=== PATIENT | female | born 1980 | race Caucasian/White ===

== ENCOUNTER 2016-06-16 16:53 | Emergency (ER) | payer OTHER ==
--- NOTE | ~2016-06-16 | CR2 ---
[facility] A Service of [facility] RADIOLOGY TEXT RESULTS PATIENT: ARAMIS WALL LOCATION: SED : 78 UNIT #: [id number] AGE: [address]: LIMA MASTERSON PA-C SEX: F ORDER DR: [id number] [address] [address] [id number] E MR#: [id number] Acc #: [id number] NAME: ARAMIS WALL : 1980 SEX: F STUDY DATE/TIME: 06/16/2016 17:18 UNIT: SED ROOM: STUDY DESCRIPTION: CR Abdomen Acute Series Attending Physician: Lima Masterson Pa-C Ordering Physician: Physician Non-Staff Primary Care Physician: Primary Care Physician No MEDICAL IMAGING REPORT This report is preliminary unless electronic signature is present. EXAM Acute abdominal series, 06/16/2016 HISTORY Abdomen pain. Burning with urination. Bilateral flank pain began 4 days ago. FINDINGS AP radiograph of the chest is presented with supine and upright radiographs of the abdomen and pelvis. Chest radiograph is suboptimal. Lung apices not entirely included on field of view. There is mild thoracolumbar scoliosis slightly convex to the right in [id number] thoracic spine and to the left at the thoracolumbar junction. No acute-appearing bony abnormality. The heart and mediastinum are normal in size and contour. The lungs are well inflated. Visualized pulmonary parenchyma is clear. No pleural effusion or indication of pneumothorax. No suspicious nodule. The bowel gas pattern shows moderate stool burden in the colon particularly in the ascending colon but there is no pathologic colonic or small bowel dilatation. No indication of obstruction. No free air. Where visualized, abdominal solid organs are unremarkable. Dictated by... Andi Floyd M.D. THIS IS AN ELECTRONICALLY VERIFIED REPORT Andi Floyd M.D. at 06/17/2016 2:18 PM Jeni TD: 06/17/2016 09:53 JOB #: [id number] [facility] A Service of [facility] RADIOLOGY TEXT RESULTS PATIENT: ARAMIS WALL LOCATION: [facility] [place] : [birth year] UNIT #: [id number] AGE: [address]: LIMA MASTERSON PA-C SEX: F ORDER DR: MEDICAL IMAGING REPORT Page 1 of 1
[~2016-06-16 16:53] MED LIST: FLEXERIL10 MG PO; MOTRIN PO; NAPROSYN125 MG/5 M PO; NO MEDICATIONS
[2016-06-16 17:02] LABS: URINE SOURCE CLEAN CATCH
[2016-06-16 17:04] LABS: URINE APPEARANCE CLEAR; URINE BILIRUBIN NEG (NEG); URINE BLOOD NEG (NEG); URINE COLOR YELLOW; URINE GLUCOSE NEG (NORM); URINE KETONE NEG (NEG); URINE LEUKOCYTE ESTERASE NEG (NEG); URINE NITRATE NEG (NEG); URINE PROTEIN NEG (NEG); URINE SPECIFIC GRAVITY 1.015 (1.003-1.035); URINE UROBILINOGEN 0.2 MG/DL (NORM)
[2016-06-16 17:08] LABS: MICRO INDICATED? NO
[2016-06-16 18:19] LABS: BASOPHIL# 0.1 X10e3 (0-0.3); BASOPHIL% 0.5 % (0-2.5); EOSINOPHIL# 0.3 X10e3 (0-0.7); HEMATOCRIT 38.5 % (35.0-45.0); HEMOGLOBIN 12.5 gm/dL (12.0-16.0); LYMPHOCYTE# 1.8 X10e3 (1.0-3.5); LYMPHOCYTE% 15.6 % (17.0-45.0); MEAN CELL VOLUME 79.4 FL (83-96); MEAN CORPUSCULAR HEMOGLOBIN 25.8 PG (28-34); MEAN CORPUSCULAR HGB CONC 32.5 g/dL (30-36); MEAN PLATELET VOLUME 8.9 FL (6.5-11.5); MONOCYTE# 0.6 X10e3 (0-1.0); MONOCYTE% 5.1 % (3.0-12.0); NEUTROPHIL# 8.9 X10e3 (1.5-7.1); NEUTROPHIL% 75.8 % (40-75); PLATELET COUNT 292 X10e3 (140-420); RED BLOOD COUNT 4.85 X10e (3.90-5.30); RED CELL DISTRIBUTION WIDTH 14.3 % (11.0-15.5); WHITE BLOOD COUNT 11.7 X10e3 (4.0-10.5)
[2016-06-16 18:21] LABS: DIFF IND NO
[2016-06-16 18:37] LABS: ALBUMIN SERUM 3.3 g/dL (3.5-5.0); ALKALINE PHOSPHATASE 66 U/L (32-92); ALT (SGPT) 26 U/L (10-40); AST (SGOT) 26 U/L (10-42); BILIRUBIN,TOTAL 0.3 mg/dL (0.2-2.0); BLOOD UREA NITROGEN 15 mg/dL (9-23); CALCIUM SERUM 8.2 mg/dL (8.4-10.2); CARBON DIOXIDE 27 mmol/L (22-31); CHLORIDE 102 mmol/L (100-111); CREATININE SERUM 0.5 mg/dL (0.6-1.4); GLOM FILT RATE Estimated ABOVE60 mL/min (>60); GLUCOSE FASTING 110 mg/dL (70-110); POTASSIUM 3.2 mmol/L (3.5-5.1); PROTEIN TOTAL SERUM 6.4 g/dL (6.0-8.3); SODIUM 134 mmol/L (135-145)
[2016-06-18] MEDS ORDERED: [UNRECOGNIZED DRUG - REMARK] (22:07)
[2016-06-18] MEDS ORDERED: NAPROSYN-EC500 M1 PO (22:07)
== END 2016-06-16 19:31 | disposition home or self-care (01) ==
LOC: SED 16:53
PROVIDERS: Physician Assistant
DX: R10.9 Unspecified abdominal pain (principal); E87.6 Hypokalemia; F41.9 Anxiety disorder, unspecified; Z86.73 Personal history of transient ischemic attack (TIA), and cerebral infarction without residual deficits; Z98.51 Tubal ligation status; Z98.890 Other specified postprocedural states; F17.210 Nicotine dependence, cigarettes, uncomplicated
CPT/HCPCS: 36415; 74022; 80053; 81003; 84703; 85025; 99284

== ENCOUNTER 2016-06-18 22:22 | Emergency (ER) | payer OTHER ==
[~2016-06-18 22:22] MED LIST changes: +NAPROSYN-EC500 M1 PO; +[UNRECOGNIZED DRUG - REMARK]
[2016-06-18 22:43] LABS: URINE SOURCE CLEAN CATCH
[2016-06-18 22:45] LABS: MICRO INDICATED? YES; URINE APPEARANCE CLEAR; URINE BILIRUBIN NEG (NEG); URINE BLOOD 1+ (NEG); URINE COLOR YELLOW; URINE GLUCOSE NEG (NORM); URINE KETONE TRACE (NEG); URINE LEUKOCYTE ESTERASE NEG (NEG); URINE NITRATE NEG (NEG); URINE PROTEIN NEG (NEG); URINE SPECIFIC GRAVITY >=1.030 (1.003-1.035); URINE UROBILINOGEN 0.2 MG/DL (NORM)
[2016-06-18 22:48] LABS: CULTURE INDICATED? YES; URINE BACTERIA 1+ (NEG); URINE MUCUS PRESENT; URINE SQUAMOUS EPITHELIAL CELL OCCAS /[HPF]
== END 2016-06-18 23:09 | disposition home or self-care (01) ==
LOC: SED 22:22
PROVIDERS: Physician Assistant
DX: N30.90 Cystitis, unspecified without hematuria (principal); F41.9 Anxiety disorder, unspecified; F17.210 Nicotine dependence, cigarettes, uncomplicated; Z86.73 Personal history of transient ischemic attack (TIA), and cerebral infarction without residual deficits
CPT/HCPCS: 81003; 84703; 87086; 99283